=== PATIENT | male | born 1995 | race Two or more races ===

== ENCOUNTER 2025-05-08 12:23 | Emergency (ER) | payer SELFPAY ==
[~2025-05-08] VITALS: Ht 170.2 cm; Wt 79.8 kg
--- NOTE | 2025-05-08 14:38 | ED.PDOC ---
Musculoskeletal HPI Comments This is a 30 year-old male who presents to the ED with a chief complaint of R lower extremity pain S/P trauma weeks ago. Patient states he twisted his leg weeks ago when taking care of his goats. Patient reports he has been unable to bend the knee fully since the incident. Patient reports using icy-hot on the knee and elevating the leg daily. Patient has no further complaints or concerns at this time. Patient otherwise denies N/V/D. fever, chills, or dizziness. Chief Complaint: Lower Extremity Time Seen by MD: 14:24 Reviewed Notes: Medications, Allergies Allergies: Coded Allergies: No Known Drug Allergy (Verified Allergy, Unknown, 05/08/25) Information Source: Patient Mode of Arrival: Ambulatory Location: Right Extremity Location: Knee Timing: Weeks Severity: Moderate Pain: Moderate Onset of Symptoms: After Trauma Symptoms: Swelling, Pain Associated signs and symptoms: Knee pain Past Medical History PAST MEDICAL HISTORY: Denies Surgical History: Denies all surgeries Family History Family History: Reviewed,noncontributory to illness, No family hx of Cancer, No family hx of DM, No family hx of Heart taylor, No family hx of HTN, No family hx ofKidney taylor, No family hx of Liver taylor, No family hx of Lung taylor, No family hx of Stroke Social History Smoker: Non-Smoker Alcohol: Denies ETOH Use Drugs: Denies Drug Use Lives In: Home Constitutional: denies: chills, diaphoresis, fatigue, fever, malaise, sweats, weakness, others EENTM: denies: blurred vision, double vision, ear bleeding, ear discharge, ear drainage, ear pain, ear ringing, eye pain, eye redness, hearing loss, mouth pain, mouth swelling, nasal discharge, nose bleeding, nose congestion, nose pain, photophobia, tearing, throat pain, throat swelling, voice changes, others Respiratory: denies: cough, hemoptysis, orthopnea, SOB at rest, shortness of breath, SOB with excertion, stridor, wheezing, others Cardiovascular: denies: chest pain, dizzy spells, diaphoresis, Dyspnea on exertion, edema, irregular heart beat, left arm pain, lightheadedness, palpitations, PND, syncope, others Gastrointestinal: denies: abdomen distended, abdominal pain, blood streaked bowels, constipated, diarrhea, dysphagia, difficulty swallowing, hematemesis, melena, nausea, poor appetite, poor fluid intake, rectal bleeding, rectal pain, vomiting, others Genitourinary: denies: burning, dysuria, flank pain, frequency, hematuria, incontinence, penile discharge, penile sore, pain, testicle pain, testicle swelling, urgency, others Neurological: denies: dizziness, fainting, headache, left sided numbness, left sided weakness, numbness, paresthesia, pre-existing deficit, right sided numbness, right sided weakness, seizure, speech problems, tingling, tremors, weakness, others Musculoskeletal: reports: joint pain; denies: back pain, gout, joint swelling, muscle pain, muscle stiffness, neck pain, others Integumetry: denies: bruises, change in color, change in hair/nails, dryness, laceration, lesions, lumps, rash, wounds, others Allergic/Immunocompromised: denies: Difficulty Healing, Frequent Infections, Hives, Itching, others Hematologic/Lymphatic: denies: anemia, blood clots, easy bleeding, easy bruising, swollen glands, others Endocrine: denies: excessive hunger, excessive sweating, excessive thirst, excessive urination, flushing, intolerance to cold, intolerance to heat, unexplained weight gain, unexplained weight loss, others Psychiatric: denies: anxiety, bipolar disorder, depression, hopeless, panic disorder, schizophrenia, sleepless, suicidal, others All Other Systems: Reviewed and Negative Physical Exam General Appearance: No Apparent Distress, Normal HEENT: NOT DONE Neck: Full Range of Motion, Normal Respiratory: No Respiratory Distress, Normal Breath Sounds Cardiovascular: No Murmur, Regular Rate/Rhythm Breast Exam: Deferred Gastrointestinal: Non Tender, Normal Bowel Sounds Genitalia: Deferred Pelvic: Deferred Rectal: Deferred Extremities: No calf tenderness, Normal capillary refill, Normal inspection, Normal range of motion, Non-tender, No pedal edema Musculoskeletal : Apperance: Normal Neurologic: Alert, No Motor Deficits, Normal Affect, Normal Mood, No Sensory Deficits Cerebellar Function: NOT DONE Reflexes: NOT DONE Skin: Dry, Normal Color, Warm Lymphatic: No Adenopathy Was a procedure done? Was a procedure done?: No Differential Diagnosis EXT Differential Diagnosis: Fracture, Sprain, Strain X-Ray, Labs, Meds, VS Vital Signs Date Time Temp Pulse Resp B/P (MAP) Pulse Ox O2 Delivery O2 Flow Rate FiO2 05/08/25 15:29 98.7 79 16 148/72 (97) 97 98.7 05/08/25 12:25 98.6 115 16 157/73 95 98.6 Time of 1ST Reevaluation: 15:21 Reevaluation 1ST: Unchanged Patient Education/Counseling: Diagnosis, Treatment Family Education/Counseling: No Family Present Departure 1 Departure Time of Disposition: 16:17 (Patient likely with a knee sprain. We will dischar ge patient home) Impression: Primary Impression: Right knee sprain Disposition: HOME / SELF CARE / HOMELESS Condition: Stable Referrals: [facility] MD Additional Instructions: You likely sprained her knee. You can Gerardo wrap your knee for comfort. You can apply ice as needed for swelling. You can take Tylenol and Motrin as needed for pain. You can use crutches as needed. You should follow up with our orthopedic surgeon within 1 week to ensure your healing well. If your symptoms worsen, or you have any other concerns, then please return to the Emergency Room. Discharged With: Self Critical Care Note Critical Care Time?: No Stability Stability form required: No Heart Score Heart Score: Heart Score Response (Comments) Value History N/A 0 EKG N/A 0 Age N/A 0 Risk Factors N/A 0 Troponin N/A 0 Total 0 I personally scribed for FAIZA CARPIO MD ([email or web address]) on 05/08/25 at 14:38. Electronically submitted by Amanda [employer]). FAIZA CARPIO MD May 08, 2025 14:38
[2025-05-08 15:29] VITALS: BP 148/72; PULSE 79; RESP 16; TEMP 98.7; O2SAT 97
--- NOTE | 2025-05-08 15:42 | DVH ---
EXAM: XY R KNEE 3V XRAY INDICATION: right knee pain TECHNIQUE: 3 views of the right knee COMPARISON: None FINDINGS/IMPRESSION: No radiographic evidence of an acute osseous abnormality. There is no acute fracture, osseous malalignment, or aggressive focal osseous lesion. No knee joint effusion.
== END 2025-05-08 16:25 | disposition home or self-care (01) ==
LOC: ER 12:23
DX: S83.91XA Sprain of unspecified site of right knee, initial encounter (principal); W50.2XXA Accidental twist by another person, initial encounter; Y93.89 Activity, other specified; Y92.89 Other specified places as the place of occurrence of the external cause; Y99.8 Other external cause status
CPT/HCPCS: 73562